=== PATIENT | male | born 1950 | race Caucasian/White ===

== ENCOUNTER 2017-06-17 13:01 | Inpatient (IN) | payer OTHER, MEDICARE ==
[~2017-06-17] VITALS: Ht 172.7 cm; Wt 84.5 kg
[~2017-06-17 13:01] MED LIST: PROPOFOL 200 MG/20 ML AMP IV ONE; TAB-TAB PO
[2017-06-17 13:06] VITALS: BP 131/61; PULSE 76; RESP 18; TEMP 97.8; O2SAT 98
[2017-06-17] MEDS ORDERED: GENTAMICIN INJ 100 MG in SODIUM CHLORIDE 0.9% INJ 100 ML IV ONE (13:15)
[2017-06-17] MEDS ORDERED: TETANUS/DIPHTHERIA TOXOID ADULT 0.5 ML VIAL IM ONE (13:15)
[2017-06-17] MEDS ORDERED: HYDROmorphone HCL PF 1 MG/ML VIAL IV PUSH ONE ×2 (13:15→14:15)
[2017-06-17] MEDS ORDERED: ONDANSETRON HCL 4 MG/2 ML VIAL IV PUSH ONE (13:15)
[2017-06-17] MEDS: SODIUM CHLOR 0.9% 1000 ML INJ 1,000 ML IV SCH ×4 (13:30→22:53)
--- NOTE | 2017-06-17 13:41 | PD ---
HPI Chief Complaint: Laceration/Skin Injury Time Seen by Provider: 13:10 Travel History International Travel<30 days: No Contact w/Intl Traveler<30days: No Traveled to known affect area: No History of Present Illness HPI 30 minutes prior to arrival this 66-year-old male lacerated his right index finger on a table saw. He accidentally slipped and cut the finger causing sudden onset severe pain and copious bleeding. Application of a rag helped stop the bleeding. Pain is worse with palpation. 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 He does not recall last tetanus shot. 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 HEAD: Atraumatic. Normocephalic. EYES: Pupils equal and round. No scleral icterus. No injection or drainage. ENT: No nasal bleeding or discharge. Mucous membranes pink and moist. NECK: Trachea midline. No JVD. CARDIOVASCULAR: Regular rate and rhythm. No murmur appreciated. RESPIRATORY: No accessory muscle use. Clear to auscultation. Breath sounds equal bilaterally. GASTROINTESTINAL: Abdomen soft, non-tender, nondistended. Hepatic and splenic margins not palpable. MUSCULOSKELETAL: In the region of the MCP of the index finger there is a complex laceration with exposed bone and tendon at approx 6cm long by 3cm wide. There is no active bleeding at the time of inspection. Sensation is intact in the distal aspects of the right second and third digits distal to the injury. Trace active motor function preserved in affected digits. 2 second capillary refill involving distal aspect of the second and third digits. Pulse oximetry reading on the affected digit reads with three stars and good wave form. No gross deformity otherwise. NEUROLOGICAL: Awake and alert. No obvious cranial nerve deficits. Motor grossly within normal limits. Normal speech. PSYCHIATRIC: Appropriate mood and affect; insight and judgment normal. Data Data Last Documented VS Vital Signs Date Time Temp Pulse Resp B/P Pulse Ox O2 Delivery O2 Flow Rate FiO2 06/17/17 13:06 97.8 76 18 131/61 98 VS reviewed Orders Basic Metabolic Panel (Bmp) (06/17/17 13:15) Complete Blood Count With Diff (06/17/17 13:15) Iv Access Insert/Monitor (06/17/17 13:15) Wound Care (06/17/17 13:15) Tetanus/Diphtheria Tox Adult (Tetanus/Di (06/17/17 13:15) Hand, Complete ([id number]) (06/17/17 13:15) Splint Or Brace Apply/Monitor (06/17/17 13:15) Cefazolin Inj (Ancef Inj) (06/17/17 13:15) Gentamicin Inj (Gentamicin Inj) (06/17/17 13:15) Sodium Chlor 0.9% 1000 Ml Inj (Ns 1000 M (06/17/17 13:15) Hydromorphone Pf Inj (Dilaudid Pf Inj) (06/17/17 13:15) Ondansetron Inj (Zofran Inj) (06/17/17 13:15) Admit Order (Ed Use Only) (06/17/17 13:54) Labs Laboratory Tests Test 06/17/17 13:40 White Blood Count 9.6 TH/MM3 Red Blood Count 5.11 MIL/MM3 Hemoglobin 15.0 GM/DL Hematocrit 45.8 % Mean Corpuscular Volume 89.7 FL Mean Corpuscular Hemoglobin 29.3 PG Mean Corpuscular Hemoglobin 32.7 % Concent Red Cell Distribution Width 13.2 % Platelet Count 355 TH/MM3 Mean Platelet Volume 8.1 FL Neutrophils (%) (Auto) 61.5 % Lymphocytes (%) (Auto) 27.4 % Monocytes (%) (Auto) 8.4 % Eosinophils (%) (Auto) 1.9 % Basophils (%) (Auto) 0.8 % Neutrophils # (Auto) 5.9 TH/MM3 Lymphocytes # (Auto) 2.6 TH/MM3 Monocytes # (Auto) 0.8 TH/MM3 Eosinophils # (Auto) 0.2 TH/MM3 Basophils # (Auto) 0.1 TH/MM3 CBC Comment DIFF FINAL Differential Comment Sodium Level 142 MEQ/L Potassium Level 3.7 MEQ/L Chloride Level 110 MEQ/L Carbon Dioxide Level 21.8 MEQ/L Anion Gap 10 MEQ/L Blood Urea Nitrogen 21 MG/DL Creatinine 0.92 MG/DL Estimat Glomerular Filtration 83 ML/MIN Rate Random Glucose 109 MG/DL Calcium Level 8.8 MG/DL [facility] Medical Decision Making Medical Screen Exam Complete: Yes Emergency Medical Condition: Yes Medical Record Reviewed: Yes Differential Diagnosis tendon laceration, fracture through the metacarpal, open fracture Narrative Course CBC & BMP Diagram 06/17/17 13:40 XRAY HAND: fracture 1 metacarpal d/w Dr Malagon - npo, ivf, abx d/w Dr Rowell - admission for [facility]55: Dr Malagon at bedside, pt to go to OR for open repair Diagnosis Primary Impression: Hand injuries Qualified Code: S69.91XA - Hand injuries, right, initial encounter Admitting Information Admitting Physician Requests: Observation Luis Daniel Hopkins MD Jun 17, 2017 13:41
[2017-06-17 13:49] LABS: AUTOMATED NEUTROPHIL # 5.9 TH/MM3 (1.8-7.7); BASOPHIL # 0.1 TH/MM3 (0-0.2); BASOPHIL % 0.8 % (0.0-2.0); EOSINOPHIL # 0.2 TH/MM3 (0-0.4); EOSINOPHIL % 1.9 % (0.0-4.0); HEMATOCRIT 45.8 % (39.0-51.0); HEMO FLAGS DIFF FINAL; LYMPH % 27.4 % (9.0-44.0); LYMPHOCYTE # 2.6 TH/MM3 (1.0-4.8); MEAN CELL VOLUME 89.7 FL (80.0-100.0); MEAN CORPUSCULAR HEMOGLOBIN 29.3 PG (27.0-34.0); MEAN CORPUSCULAR HGB CONC 32.7 % (32.0-36.0); MONO % 8.4 % (0.0-8.0); NEUT % 61.5 % (16.0-70.0); PLATELET COUNT 355 TH/MM3 (150-450); RED BLOOD COUNT 5.11 MIL/MM3 (4.50-5.90); RED CELL DISTRIBUTION WIDTH 13.2 % (11.6-17.2); WHITE BLOOD COUNT 9.6 TH/MM3 (4.0-11.0)
[2017-06-17 13:58] LABS: POTASSIUM 3.7 MEQ/L (3.5-5.1)
[2017-06-17] MEDS ORDERED: ASPI81TA81 (13:58)
[2017-06-17 14:01] LABS: BICARBONATE 21.8 MEQ/L (21.0-32.0)
[2017-06-17 14:14] VITALS: BP 136/74; PULSE 60; RESP 18; O2SAT 98
--- NOTE | 2017-06-17 15:00 | RADRPT ---
EXAM DATE/TIME: 06/17/2017 13:19 [place] COMPARISON: No previous studies available for comparison. INDICATIONS : Laceration right hand second digit, table saw accident. MEDICAL HISTORY : None. SURGICAL HISTORY : None. ENCOUNTER: Initial ACUITY: 1 day PAIN SCORE: 10/10 LOCATION: Right hand second digit FINDINGS: There is an acute displaced fracture involving the head of the right second metacarpal. CONCLUSION: Acute displaced fracture involving the head of the right second metacarpal. Luis Puentes MD on June 17, 2017 at 14:50 Board Certified Radiologist. This report was verified electronically.
[2017-06-17] MEDS ORDERED: BACITRACIN TOP OINT 15 GM TUBE ONE (15:31)
[2017-06-17] MEDS ORDERED: LIDOCAINE HCL 2% 50 ML VIAL ONE (15:32)
[2017-06-17] MEDS ORDERED: NEOMYCIN/POLYMYXIN 1 ML G.U. IRRIGANT ONE ×3 (15:32→17:06)
[2017-06-17] MEDS ORDERED: BUPIVACAINE HCL PF 0.5% 30 ML VIAL ONE (15:32)
[2017-06-17] MEDS ORDERED: ACETAMINOPHEN 325 MG TAB PO PRN ×2 (16:00)
[2017-06-17] MEDS ORDERED: MORPHINE SULFATE 4 MG/ML INJ IV PRN (16:00)
[2017-06-17] MEDS ORDERED: SODIUM CHLORIDE 0.9% FLUSH 10 ML FLUSH IV FLUSH PRN (16:00)
[2017-06-17] MEDS ORDERED: NALOXONE HCL 0.4 MG/ML AMP IV PRN (16:00)
[2017-06-17] MEDS ORDERED: ONDANSETRON HCL 4 MG/2 ML VIAL IVP PRN (16:00)
[2017-06-17] MEDS ORDERED: fentaNYL CITRATE 250 MCG/5 ML AMP ONE (16:29)
[2017-06-17] MEDS ORDERED: ceFAZolin INJ 1,000 MG VIAL ONE (16:39)
[2017-06-17] MEDS ORDERED: Vancomycin Consult Pharmacy 1 EA OTHER SCH (18:30)
[2017-06-17] MEDS ORDERED: VANCOMYCIN INJ 1,200 MG in SODIUM CHLOR 0.9% 250 ML INJ 250 ML IV SCH (18:30)
[2017-06-17 19:22] VITALS: PULSE 105
--- NOTE | 2017-06-17 19:43 | PD.OP ---
Operative Report Preoperative Diagnosis: (1) Laceration of extensor muscle, fascia and tendon of left index finger at wrist and hand level, initial encounter (2) open fracture dislocation second metacarpophalangeal joint (3) open fracture third metacarpal head left hand (4) laceration extensor tendon middle finger left hand Postoperative Diagnosis: (1) Laceration of extensor muscle, fascia and tendon of left index finger at wrist and hand level, initial encounter (2) open fracture dislocation second metacarpophalangeal joint (3) open fracture third metacarpal head left hand (4) laceration extensor tendon middle finger left hand Procedure: exploration, wash, excisional debridement of open fracture dislocation second metacarpophalangeal joint open reduction internal fixation second metacarpal heal with headless screws repair of radial collateral ligament second metacarpophalangeal joint repair dorsal capsule third metacarpophalangeal joint repair extensor tendon index finger Metacarpophalangeal joint repair extenso tendon middle finger metacarpophalangeal joint repair of laceration left hand Anesthesia: general Surgeon: Miguel Angel Malagon Produce Clerk(s): ryan Operation and Findings: open fracture dislocation second metacarpophalangeal joint laceration radial collateral ligament 2nd MP joint loss of dorsal 1/3rd proximal phalanx base articular surface index finger extensor tendon laceration index and middle finger MP joint region loss of dorsal less than 1/3rd third metacarpal head laceration dorsal capsule 3rd MP joint Miguel Angel Malagon MD Jun 17, 2017 19:43
[2017-06-17] MEDS ORDERED: VANCOMYCIN 1,500 MG/NS 500 ML IV SCH ×2 (20:00)
--- NOTE | 2017-06-17 20:11 | HHI.PR ---
Addendum to Inpatient Note Addendum Reason: Additional Documentation (w) Additional Information was called by patient's hand surgeon that pt is in pacu, post op. Surgeon had started pt on cefazolin and would like vanco to be discontinued (thus I have d/ ida it). Also, tomorrow afternoon, the surgeon will come see patient again and would likely remove the drains. Thus would like us to keep pt in hospital for further care. Elisabet Bhat MD Jun 17, 2017 20:11
[2017-06-17 20:22] VITALS: PULSE 87
[2017-06-17] MEDS: SODIUM CHLORIDE 0.9% FLUSH 10 ML FLUSH IV FLUSH SCH (21:00)
[2017-06-17] MEDS: DOCUSATE SODIUM 50 MG/SENNA 8.6 MG TAB PO SCH (21:50)
[2017-06-17] MEDS: ceFAZolin 2 GM PREMIX 50 ML IV SCH (21:52)
[2017-06-18] VITALS: BP 149/80; PULSE 75; RESP 18; TEMP 96.6; O2SAT 97
[2017-06-18 04:00] VITALS: BP 119/64; PULSE 71; RESP 16; TEMP 97.7; O2SAT 97
[2017-06-18] MEDS: ceFAZolin 2 GM PREMIX 50 ML IV SCH (04:11)
[2017-06-18] MEDS: SODIUM CHLOR 0.9% 1000 ML INJ 1,000 ML IV SCH (04:12)
--- NOTE | 2017-06-18 05:17 | MB ---
cc: DALIA FUENTES MD DATE OF CONSULTATION June 17, 2017 REASON FOR CONSULTATION Table saw injury to right hand. HISTORY OF PRESENT ILLNESS The patient is a 66-year-old right-hand dominant male who presented to the ED with complaints of table saw injury to the right hand. The patient accidentally lacerated his right hand. He complains of laceration over the dorsal aspect of the index and middle fingers. The patient complains of inability to extend the index and middle fingers. He also complains of index finger dangling by the volar soft tissues. No other injuries. Denies any numbness over the fingertips. PAST MEDICAL-SURGICAL HISTORY Noted. EXAMINATION The patient is alert and oriented x 3. Examination of the right hand reveals a complex laceration extending along the first webspace onto the dorsal aspect of the MP joint region of the index finger onto the third metacarpophalangeal joint region. There is evidence of a fragment of metacarpal head within the laceration. The second metacarpophalangeal joint appears to be exposed and subluxed and dislocated volarly. Complete laceration of the extensor tendon is noted. There is also volar subluxation of the third metacarpophalangeal joint. He has intact sensation over the pulp region. He has intact distal circulation over the pulp region. Intact flexion noted of the DIP and PIP joints of the index and middle fingers. X-RAYS X-rays of the right hand was reviewed and shows displaced fractured head of the second metacarpal with loss of base of the proximal phalanx and questionable involvement of the third metacarpal head. ASSESSMENT A 66-year-old male with table saw injury to the right hand with open fracture dislocation second metacarpophalangeal joint and laceration of the extensor tendons of the index and middle fingers. PLAN The plan will be to take the patient emergently for exploration, repair of the laceration, open reduction internal fixation of the second metacarpal head and possible third metacarpal head and repair for extensor tendons index and middle fingers. The patient has been explained risks and benefits of the procedure. Dalia Fuentes MD SE/SSB /7:54 PM 5:00 AM
[2017-06-18 06:22] LABS: AUTOMATED NEUTROPHIL # 8.1 TH/MM3 (1.8-7.7); BASOPHIL % 0.3 % (0.0-2.0); EOSINOPHIL % 0.4 % (0.0-4.0); HEMATOCRIT 37.2 % (39.0-51.0); HEMO FLAGS DIFF FINAL; LYMPH % 9.8 % (9.0-44.0); MEAN CELL VOLUME 89.3 FL (80.0-100.0); MEAN CORPUSCULAR HEMOGLOBIN 29.7 PG (27.0-34.0); MEAN CORPUSCULAR HGB CONC 33.3 % (32.0-36.0); MONO % 9.3 % (0.0-8.0); NEUT % 80.2 % (16.0-70.0); PLATELET COUNT 250 TH/MM3 (150-450); RED BLOOD COUNT 4.17 MIL/MM3 (4.50-5.90); RED CELL DISTRIBUTION WIDTH 12.9 % (11.6-17.2)
[2017-06-18 06:34] LABS: CHLORIDE 107 MEQ/L (98-107); POTASSIUM 3.6 MEQ/L (3.5-5.1); SODIUM (NA) 140 MEQ/L (136-145)
[2017-06-18 06:55] LABS: ALKALINE PHOSPHATASE 57 U/L (45-117); ALT (GPT) 17 U/L (12-78); ANION GAP 8 MEQ/L (5-15); AST (GOT) 11 U/L (15-37); BICARBONATE 25.1 MEQ/L (21.0-32.0); BLOOD UREA NITROGEN 16 MG/DL (7-18); GLOMERULAR FILTRATION RATE 98 ML/MIN (>89); TOTAL BILIRUBIN ADULT 0.8 MG/DL (0.2-1.0)
[2017-06-18] MEDS: DOCUSATE SODIUM 50 MG/SENNA 8.6 MG TAB PO SCH (08:07)
[2017-06-18] MEDS: SODIUM CHLORIDE 0.9% FLUSH 10 ML FLUSH IV FLUSH SCH (08:09)
--- NOTE | 2017-06-18 08:40 | HHI.HP ---
[facility] Service [facility] ([place], [place])ists Primary Care Physician Jorge Webb MD Admission Diagnosis R Hand Table Saw Injury Diagnoses: Chief Complaint: Right hand injury Travel History International Travel<30 Days: No Contact w/Intl Traveler <30 Da: No Traveled to Known Affected Are: No History of Present Illness The patient is a 66-year-old male with no significant past medical history who is presenting to the hospital following a right hand injury. 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 His right hand was severely injured and he was able to see the bone. He grabbed a towel, wrapped it up and drove home. He said the pain was not that significant at that point. When he got home he told his to drive him to the hospital. He started to feel lightheaded at that point. In the emergency department when they unwrapped his hand and started exploring the wound the patient said his pain became a 10 out of 10 in severity. He said the pain medications he received have been helping. He said he tolerated the surgery well last night. He is looking forward to going home later today if cleared by hand surgery. He complains of acid reflux associated with the pain pills. Review of Systems Except as stated in HPI: all other systems reviewed are Neg Past Family Social History Past Medical History Appendicitis status post appendectomy He requires esophageal dilatations periodically Allergies: Coded Allergies: No Known Allergies (Verified , 06/17/17) Active Ordered Medications Current Medications Medications (Trade) Dose Ordered Sig/Rory Route Start Time Stop Time Status Last Admin Sodium Chloride 1,000 ml @ 125 mls/hr Q8H IV 06/17/17 13:15 06/18/17 04:12 (NS 1000 ml Inj) 1,000 ml @ 100 mls/hr Q10H IV 06/17/17 16:00 (NS Flush) 2 ml UNSCH PRN IV FLUSH 06/17/17 16:00 (NS Flush) 2 ml BID IV FLUSH 06/17/17 21:00 06/18/17 08:09 (Tylenol) 650 mg Q4H PRN PO 06/17/17 16:00 (Zofran Inj) 4 mg Q6H PRN IVP 06/17/17 16:00 (Tylenol) 650 mg Q6H PRN PO 06/17/17 16:00 (Roxicodone) 10 mg Q4H PRN PO 06/17/17 16:00 06/18/17 08:08 (Morphine Inj) 4 mg Q3H PRN IV 06/17/17 16:00 (Roxicodone) 5 mg Q4H PRN PO 06/17/17 16:00 (Narcan Inj) 0.4 mg UNSCH PRN IV 06/17/17 16:00 Senna/Docusate Sodium 1 tab 1 tab BID PO 06/17/17 21:00 06/18/17 08:07 (Ancef 2 Gm Premix) 50 ml @ 100 mls/hr Q8H IV 06/17/17 21:00 06/18/17 04:11 Family History CAD Social History The patient does not smoke. He has social alcohol use. He does not use illicit substances. Physical Exam Vital Signs Vital Signs Date Time Temp Pulse Resp B/P Pulse Ox O2 Delivery O2 Flow Rate FiO2 06/18/17 04:00 97.7 71 16 119/64 97 06/18/17 00:00 96.6 75 18 149/80 97 06/17/17 20:22 97.7 87 17 126/70 99 Nasal Cannula 3 06/17/17 20:22 87 06/17/17 20:07 86 17 137/73 98 Nasal Cannula 3 06/17/17 19:52 88 16 139/77 99 Nasal Cannula 3 06/17/17 19:37 96 16 132/71 99 Nasal Cannula 3 06/17/17 19:22 98.0 92 20 126/68 99 Nasal Cannula 3 06/17/17 19:22 105 06/17/17 14:14 60 18 136/74 98 Room Air 06/17/17 13:06 97.8 76 18 131/61 98 Physical Exam GENERAL: This is a well-nourished, well-developed patient, in no apparent distress. SKIN: No rashes, ecchymoses or lesions. Cool and dry. HEAD: Atraumatic. Normocephalic. No temporal or scalp tenderness. EYES: Pupils equal round and reactive. Extraocular motions intact. No scleral icterus. No injection or drainage. ENT: Nose without bleeding, purulent drainage or septal hematoma. Throat without erythema, tonsillar hypertrophy or exudate. Uvula midline. Airway patent. NECK: Trachea midline. No JVD or lymphadenopathy. Supple, nontender, no meningeal signs. CARDIOVASCULAR: Regular rate and rhythm. Systolic murmur appreciated. RESPIRATORY: Clear to auscultation. Breath sounds equal bilaterally. No wheezes , rales, or rhonchi. GASTROINTESTINAL: Abdomen soft, non-tender, nondistended. No hepato-splenomegaly , or palpable masses. No guarding. MUSCULOSKELETAL: Right hand is currently bandaged, exposing the fingertips. Fingers are nontender to palpation and sensation is intact. He has brisk capillary refill. NEUROLOGICAL: Awake and alert. Cranial nerves II through XII intact. Motor and sensory grossly within normal limits. Five out of 5 muscle strength in all muscle groups. Normal speech. PSYCH: Mood and affect appropriate. Laboratory Laboratory Tests Test 06/17/17 06/18/17 13:40 05:35 White Blood Count 9.6 10.0 Red Blood Count 5.11 4.17 Hemoglobin 15.0 12.4 Hematocrit 45.8 37.2 Mean Corpuscular Volume 89.7 89.3 Mean Corpuscular Hemoglobin 29.3 29.7 Mean Corpuscular Hemoglobin 32.7 33.3 Concent Red Cell Distribution Width 13.2 12.9 Platelet Count 355 250 Mean Platelet Volume 8.1 7.7 Neutrophils (%) (Auto) 61.5 80.2 Lymphocytes (%) (Auto) 27.4 9.8 Monocytes (%) (Auto) 8.4 9.3 Eosinophils (%) (Auto) 1.9 0.4 Basophils (%) (Auto) 0.8 0.3 Neutrophils # (Auto) 5.9 8.1 Lymphocytes # (Auto) 2.6 1.0 Monocytes # (Auto) 0.8 0.9 Eosinophils # (Auto) 0.2 0.0 Basophils # (Auto) 0.1 0.0 CBC Comment DIFF FINAL DIFF FINAL Differential Comment Sodium Level 142 140 Potassium Level 3.7 3.6 Chloride Level 110 107 Carbon Dioxide Level 21.8 25.1 Anion Gap 10 8 Blood Urea Nitrogen 21 16 Creatinine 0.92 0.79 Estimat Glomerular Filtration 83 98 Rate Random Glucose 109 106 Calcium Level 8.8 7.8 Total Bilirubin 0.8 Aspartate Amino Transf 11 (AST/SGOT) Alanine Aminotransferase 17 (ALT/SGPT) Alkaline Phosphatase 57 Total Protein 5.8 Albumin 2.9 Result Diagram: 06/18/17 0535 06/18/17 0535 Imaging Last Impressions Hand X-Ray 06/17/17 1315 Signed Impressions: Service Date/Time: Saturday, June 17, 2017 13:19 - CONCLUSION: Acute displaced fracture involving the head of the right second metacarpal. Luis Puentes MD Assessment and Plan Assessment and Plan Acute severe right hand injury/ fracture S/t tablesaw incident. Imaging revealed: Acute displaced fracture involving the head of the right second metacarpal. Hand surgery was consulted. The pt is s /p exploration, wash, excisional debridement of open fracture/ dislocation of second metacarpophalangeal joint; open reduction internal fixation second metacarpal heal with headless screws; repair of radial collateral ligament of second metacarpophalangeal joint; repair of dorsal capsule of the third metacarpophalangeal joint; repair of the extensor tendon of the index finger metacarpophalangeal joint; repair of the extensor tendon of the middle finger metacarpophalangeal joint. - IV antibiotics and wound care per hand surgery. - IV and PO pain control with a bowel regimen. - will likely need HHC upon discharge. Case management consult requested. - encourage ambulation. Acid reflux S/t pain pills. Also requires periodic esophageal dilatations. - Maalox as needed. - PPI. - outpt follow up with GI. PPx: SCDs; PPI Code Status Full Discussed Condition With Pt Physician Certification 2 Midnight Certification Type: Admission for Inpatient Services Order for Inpatient Services The services are ordered in accordance with Medicare regulations or non- Medicare payer requirements, as applicable. In the case of services not specified as inpatient-only, they are appropriately provided as inpatient services in accordance with the 2-midnight benchmark. Estimated LOS (days): 2 days is the estimated time the patient will need to remain in the hospital, assuming treatment plan goals are met and no additional complications. Post-Hospital Plan: Home Pravin Rowell DO Jun 18, 2017 08:40
[2017-06-18] MEDS ORDERED: ALUMINUM/MAGNESIUM/SIMETH 30 ML CUP PO ONE (08:45)
[2017-06-18] MEDS ORDERED: ALUMINUM/MAGNESIUM/SIMETH 30 ML CUP PO PRN (08:45)
[2017-06-18] MEDS ORDERED: PANTOPRAZOLE SOD 40 MG DELAYED RELEASE TAB PO SCH (09:00)
[2017-06-18] MEDS ORDERED: POTASSIUM CHLORIDE 25 MEQ EFFERVESCENT TAB PO ONE (09:00)
[2017-06-18 10:04] VITALS: BP 138/78; PULSE 71; RESP 15; TEMP 97.7; O2SAT 99
--- NOTE | 2017-06-18 10:44 | HHI.PR ---
Subjective Remarks complains of pain right hand region denies any numbness complaint with limb elevation Objective Vital Signs Date Time Temp Pulse Resp B/P Pulse Ox O2 Delivery O2 Flow Rate FiO2 06/18/17 10:04 97.7 71 15 138/78 99 06/18/17 09:30 16 06/18/17 04:00 97.7 71 16 119/64 97 06/18/17 00:00 96.6 75 18 149/80 97 06/17/17 20:22 97.7 87 17 126/70 99 Nasal Cannula 3 06/17/17 20:22 87 06/17/17 20:07 86 17 137/73 98 Nasal Cannula 3 06/17/17 19:52 88 16 139/77 99 Nasal Cannula 3 06/17/17 19:37 96 16 132/71 99 Nasal Cannula 3 06/17/17 19:22 98.0 92 20 126/68 99 Nasal Cannula 3 06/17/17 19:22 105 06/17/17 14:14 60 18 136/74 98 Room Air 06/17/17 13:06 97.8 76 18 131/61 98 I/O 06/17/17 06/17/17 06/17/17 06/18/17 06/18/17 06/18/17 07:00 15:00 23:00 07:00 15:00 23:00 Intake Total 800 ml 420 ml Output Total 300 ml 600 ml Balance 800 ml 120 ml -600 ml Intake Oral 420 ml Other 800 ml Output Urine Total 300 ml 600 ml # Bowel Movements 0 examination of the right hand: intact distal circulation intact distal sensation patient is able to wiggle his fingers Result Diagram: 06/18/17 0535 06/18/17 0535 Assessment and Plan Assessment and Plan 66 year with table saw injury right hand s/p exploration, wash, ORIF 2nd metacarpal head, repair of extensor tendons index and middle finger right hand POD 1 plan: patient can be discharged home on po antibiotics and pain meds keep the part elevated finger range of motion exercises follow up in office tomorrow. Miguel Angel Malagon MD Jun 18, 2017 10:44
[2017-06-18] MEDS ORDERED: AUGM875T3 PO (10:56)
[2017-06-18] MEDS ORDERED: NORC5TAB PO (10:56)
--- NOTE | 2017-06-18 10:57 | HHI.DCPOC ---
Discharge Care Plan Diagnosis: (1) laceration extensor tendon middle finger left hand (2) open fracture third metacarpal head left hand (3) open fracture dislocation second metacarpophalangeal joint (4) Laceration of extensor muscle, fascia and tendon of left index finger at wrist and hand level, initial encounter (5) Hand injuries Goals to Promote Your Health * To prevent worsening of your condition and complications * To maintain your health at the optimal level Directions to Meet Your Goals Take your medications as prescribed Follow your dietary instruction Follow activity as directed Keep your appointments as scheduled Take your immunizations and boosters as scheduled If your symptoms worsen call your PCP, if no PCP go to Urgent Care Center or Emergency Room Smoking is Dangerous to Your Health. Avoid second hand smoke Call the 24-hour hour crisis hotline for domestic abuse at Pravin Rowell DO Jun 18, 2017 10:57
--- NOTE | 2017-06-18 12:57 | EKG ---
Date Performed: 06/17/2017 Time Performed: 15:43:55 PTAGE: 66 years EKG: Sinus rhythm MODERATE VOLTAGE CRITERIA FOR LVH, CONSIDER NORMAL VARIANT BORDERLINE ECG PREVIOUS TRACING : 04/08/2012 20.14 DOCTOR: Patricio Lim Interpretating Date/Time 06/18/2017 12:52:23
--- NOTE | 2017-06-19 21:53 | MP ---
cc: DEDE FUENTESKANTH DATE OF SURGERY 06/17/17 PREOPERATIVE DIAGNOSIS Complex laceration dorsal aspect of the right hand with open fracture dislocation second metacarpal phalangeal joint, open fracture third metacarpal head and laceration of the extensor tendons of the index finger and middle finger. POSTOPERATIVE DIAGNOSIS Open fracture dislocation second metacarpal phalangeal joint with displaced metacarpal head and displaced second metacarpal head, laceration of the radial collateral ligament and dorsal capsule second metacarpal phalangeal joint, laceration extensor tendon and metacarpal phalangeal joint index finger, laceration dorsal capsule third metacarpal phalangeal joint, laceration extensor tendon middle finger metacarpal phalangeal joint region, loss of 1/3 proximal phalanx base articular surface and less than dorsal 1/3 third metacarpal head. PROCEDURE 1. Exploration, wash, excisional debridement of fracture open fracture dislocation second metacarpal phalangeal joint and third metacarpal phalangeal joint 2. Open reduction internal fixation second metacarpal head with headless screws. 3. Repair radial collateral ligament second metacarpal phalangeal joint 4. Repair dorsal capsule third metacarpal phalangeal joint 5. Repair extensor tendon index finger metacarpal phalangeal joint region 6. Repair extensor tendon middle finger metacarpal phalangeal joint region 7. Repair of complex laceration left hand dorsum ANESTHESIA General ESTIMATED BLOOD LOSS Minimal TOURNIQUET TIME 107 minutes at 250 mmHg IMPLANTS USED Synthes 1.5 headless screws x2 14 and 20 mm 0.045 K-wires times one 3-0 suture anchor x1. DISPOSITION The patient was recovered and sent to recovery in stable condition. INDICATIONS The patient is a 66-year-old right-hand dominant male who presented to the ED with table saw injury to the right hand this afternoon. The patient complained of inability to move the index finger and laceration of the dorsal aspect of the hand involving the index and middle finger. He denied any numbness. On examination, he had complex laceration over the dorsal aspect of the second and third metacarpal phalangeal joint region with exposed metacarpal head and joint with the index finger dangling. He did have intact flexion right distal interphalangeal joint of the index and middle finger. He also had intact distal circulation and intact distal sensation over the pulp. X-ray showed displaced metacarpal head index finger metacarpal phalangeal joint. The patient was consented for exploration, repair of laceration, fixation of metacarpal head and repair of extensor tendons. He was consented for the same. PROCEDURE IN DETAIL The patient was brought to the operating room under general anesthesia. The right upper extremity was thoroughly prepped and draped. Thorough wash was given. On further exploration, there was evidence of bleeding and exsanguinated using Esmarch tourniquet. Tourniquet was inflated to 250 mmHg. Exploration of the wound was carried out. Intraoperative findings included open fracture dislocation second metacarpal phalangeal joint with a displaced fracture of the second metacarpal in a coronal fashion. There was loss of the dorsal one-third of the proximal phalanx base involving the articular surface, complete laceration of the dorsal capsule and the radial collateral ligament of the index finger noted. There was also complete laceration of the dorsal capsule, loss of less than one third of the dorsal surface of the head of the metacarpal involving the middle finger MP joint with complete laceration of the extensor tendons over the index and middle fingers MP joint region. Thorough wash of the wound was carried out with 2 liters of normal saline mixed with irrigant. Skin edges were trimmed. Excisional debridement of the fracture site in the joint location was carried out of devitalized tissue and foreign body. Attention was initially directed to the metacarpal head which was reduced and was held in place by a 0.28 K-wire. Reduction was confirmed using C-arm. A 1.5 mm synthes headless screw was selected and initially hole was ___ from the metacarpal head into the proximal shaft and a 1.7 headless screw was inserted in a distal to proximal direction. Reduction was confirmed using the C-arm. The headless screw placement was also confirmed using C-arm. Multiple views were obtained. The K-wire was removed and another 20 mm 1.5 mm headless screw was inserted across the fracture and across the proximal fragment. Reduction was confirmed with C-arm. The fracture of the head of the metacarpal as well reduced and the implants were well-placed. The MP joint was then reduced and held in place with K-wire in an antegrade fashion extending from the metacarpal neck region to the base of the proximal phalanx. This was then followed by repair of the radial collateral ligament using 3-0 Ethibond in a horizontal mattress interrupted fashion. Because of the loss of the dorsal base of the proximal phalanx, a suture anchor was used into the base of the proximal phalanx. A 3-0 Mitek suture anchor was used and the dorsal capsule was anchored to the suture anchor. Attention was then directed to the extensor tendon. This was repaired in a cross cruciate fashion using 3-0 Ethibond stitch with four strands crossing across the repair site. Laterally the sagittal bands were repaired using 3-0 Vicryl. The tendon repair was then reinforced with 6-0 Prolene in a continuous circumferential fashion. Attention was then directed to the middle finger. Thorough wash was given. Excisional debridement of devitalized tissue was carried out. There was loss of less than one third of the dorsal head of the metacarpal and the volar subluxation of the MP joint. The capsule of the third metacarpal phalangeal joint was sutured to the base of the proximal phalanx using multiple 3-0 Ethibond stitches. This was then followed by repair of the extensor tendon. Using 3-0 Ethibond in a cross cruciate fashion with four strands crossing across the repaired site. The repair site then reinforced with 6-0 Prolene in continuous circumferential fashion. The sagittal bands were then repaired using 3-0 Vicryl stitches. The middle finger was put through range of motion. The tendon repair site was holding in place. Thorough wash of the wounds were carried out. Bleeding points were cauterized with bipolar cautery. He had a laceration extending along the first webspace. The laceration was repaired with 5-0 nylon in a horizontal mattress interrupted fashion. Two [place] drains were placed into the wound. The K-wires were then cut short just superficial to the skin and was protected with Julieta balls. Xeroform bacitracin dressing applied. About 10 mL of local anesthesia containing mixture of 2+ lidocaine __% Marcaine was injected across incision site. Bulky hand dressing was applied which was held in place by a volar splint keeping the wrist in extension and MP joint in extension. He had good distal circulation at the end of the procedure. He was recovered and sent to recovery in stable condition. We will keep the patient on observation and we will give him antibiotics for 24 hours. Plan on removing the Rubio drain unit tomorrow or day after tomorrow. Miguel Angel Fuentes MD SE/ /7:43 PM /9:18 PM
[2017-06-20] MEDS ORDERED: PHARMACY ORDERED LAB ONE (19:45)
== END 2017-06-18 12:58 | disposition home or self-care (01) | DRG 501 ==
LOC: PHED 13:01 → PHEDA 13:55 → PH3A 20:49
PROVIDERS: ADMIT Hospitalist; ATTEND Hospitalist
PROC: 0MQ80ZZ Repair Left Hand Bursa and Ligament, Open Approach (ICD-10-PCS; 2017-06-17)
PROC: 0RQV0ZZ Repair Left Metacarpophalangeal Joint, Open Approach (ICD-10-PCS; 2017-06-17)
PROC: 0LQ80ZZ Repair Left Hand Tendon, Open Approach (ICD-10-PCS; 2017-06-17)
PROC: 0LQ80ZZ Repair Left Hand Tendon, Open Approach (ICD-10-PCS; 2017-06-17)
PROC: 0JQK0ZZ Repair Left Hand Subcutaneous Tissue and Fascia, Open Approach (ICD-10-PCS; 2017-06-17)
PROC: 0PSQ04Z Reposition Left Metacarpal with Internal Fixation Device, Open Approach (ICD-10-PCS; principal; 2017-06-17 16:28)
DX: S66.321A Laceration of extensor muscle, fascia and tendon of left index finger at wrist and hand level, initial encounter (principal); S62.301B Unspecified fracture of second metacarpal bone, left hand, initial encounter for open fracture; S62.303B Unspecified fracture of third metacarpal bone, left hand, initial encounter for open fracture; K21.9 Gastro-esophageal reflux disease without esophagitis; Y92.9 Unspecified place or not applicable; W31.2XXA Contact with powered woodworking and forming machines, initial encounter; S66.323A Laceration of extensor muscle, fascia and tendon of left middle finger at wrist and hand level, initial encounter; Z90.49 Acquired absence of other specified parts of digestive tract; S53.22XA Traumatic rupture of left radial collateral ligament, initial encounter
CPT/HCPCS: 73130; 76000; 80048; 80053; 85025; 90471; 90714; 93005; 96365; 96375; C1713; J0690; J1170; J1580; J2405; J3010; J7030